=== PATIENT | male | born 1950 | race African-American/Black ===

== ENCOUNTER 2021-07-13 18:01 | Inpatient (IN) ==
[2021-07-13] MEDS ORDERED: SODIUM CHLORIDE 0.9% 500 ML IV STA (18:55)
[2021-07-13] MEDS ORDERED: ONDANSETRON 4 MG/2 ML VIAL IV STA (18:55)
[2021-07-13] MEDS ORDERED: methylPREDNISolone SOD SUC 125 MG/2 ML VIAL IV STA (18:55)
[2021-07-13] MEDS ORDERED: ALBUTEROL NEB SOLN 5 MG/ML 20 ML/BOTTLE CONT NEB SCH (19:00)
[2021-07-13 19:45] LABS: Basophils # 0.1 10*3/uL (0.0-0.2); Basophils % 0.7 % (0.0-0.8); Eosinophils # 0.5 10*3/uL (0.0-0.87); Eosinophils % 4.9 % (0.00-10.9); Hematocrit 41.6 VOL% (42.0-52.0); Hemoglobin 13.5 GM/DL (14.0-18.0); Immature Granulocytes % 0.4 %; Immature Granulocytes Absolute 0.04 #; Lymphocytes # 2.7 10*3/uL (1.4-4.0); Lymphocytes % 25.8 % (21.2-54.2); Mean Corpuscular HGB Conc 32.5 GM/DL (32-36); Mean Corpuscular Volume 81.4 FL (87-102); Monocytes # 0.9 10*3/uL (0.11-0.8); Neutrophils % 60.2 % (38.7-73.9); Platelet Count 520 T/CUMM (130-400); Red Blood Count 5.11 MC/CUMM (3.8-5.5); Red Cell Distribution Width 15.4 % (9.3-17.3); White Blood Count 10.6 T/CUMM (4-12)
[2021-07-13 19:52] LABS: Albumin 3.2 G/DL (3.4-5.0); Bilirubin,Total 0.5 MG/DL (0.20-1.00); Calcium 9.8 MG/DL (8.5-10.1); Osmolality,Calculated 267.1 MOS/KG (273-304); Potassium 3.7 MMOL/L (3.5-5.1); Total Protein 7.7 G/DL (6.4-8.2)
[2021-07-13] MEDS ORDERED: ENOXAPARIN 100 MG/ML SYRINGE SUBCUT STA (20:11)
[2021-07-13] MEDS ORDERED: ASPIRIN EC 325 MG TABLET PO STA (20:11)
[2021-07-13] MEDS ORDERED: PIPERACILLIN/TAZOBACTAM 3,375 MG in SODIUM CHLORIDE 0.9% 100 ML IV STA (20:11)
[2021-07-13] MEDS ORDERED: NICOTINE 21 MG/24 HR PATCH TRANSDERM PRN (20:29)
[2021-07-13] MEDS ORDERED: ACETAMINOPHEN 325 MG TABLET PO PRN (20:29)
[2021-07-13] MEDS ORDERED: MORPHINE 2 MG/1 ML SYRINGE IV PRN (20:29)
[2021-07-13] MEDS ORDERED: ZALEPLON 5 MG CAPSULE PO PRN (20:29)
[2021-07-13] MEDS ORDERED: ONDANSETRON 4 MG/2 ML VIAL IV PRN (20:29)
[2021-07-13] MEDS ORDERED: diphenhydrAMINE CAP 25 MG CAPSULE PO PRN (20:29)
[2021-07-13] MEDS ORDERED: GLUCAGON 1 MG VIAL IM PRN (20:29)
[2021-07-13] MEDS ORDERED: guaiFENesin/DM ER 600-30 MG TABLET PO PRN (20:29)
[2021-07-13] MEDS ORDERED: DEXTROSE 10% 250 ML BAG IV PRN (20:33)
[2021-07-13] MEDS: HEPARIN 5,000 UNIT/1 ML VIAL SUBCUT SCH (21:26)
[2021-07-13] MEDS: hydrALAZINE 20 MG/1 ML VIAL IV PRN (21:31)
[2021-07-14 01:37] LABS: Basophils % 0.4 % (0.0-0.8); Eosinophils % 0.1 % (0.00-10.9); Hematocrit 40.7 VOL% (42.0-52.0); Hemoglobin 13.5 GM/DL (14.0-18.0); Immature Granulocytes % 0.3 %; Immature Granulocytes Absolute 0.02 #; Lymphocytes # 0.9 10*3/uL (1.4-4.0); Lymphocytes % 11.5 % (21.2-54.2); Mean Corpuscular HGB Conc 33.2 GM/DL (32-36); Mean Corpuscular Volume 80.3 FL (87-102); Mean Platelet Volume 9.4 FL (9.6-12.0); Monocytes % 0.5 % (1.7-12.7); Neutrophils % 87.2 % (38.7-73.9); Platelet Count 478 T/CUMM (130-400); Red Blood Count 5.07 MC/CUMM (3.8-5.5); Red Cell Distribution Width 15.4 % (9.3-17.3); White Blood Count 7.9 T/CUMM (4-12)
[2021-07-14] MEDS: ALBUTEROL/IPRATROPIUM 3 ML NEB RESP TX SCH ×4 (01:43→19:44)
[2021-07-14 02:14] LABS: Calcium 9.4 MG/DL (8.5-10.1); Osmolality,Calculated 274.8 MOS/KG (273-304); Potassium 3.7 MMOL/L (3.5-5.1)
[2021-07-14] MEDS: methylPREDNISolone SOD SUC 125 MG/2 ML VIAL IV SCH ×2 (10:57→22:20)
[2021-07-14] MEDS: HEPARIN 5,000 UNIT/1 ML VIAL SUBCUT SCH ×2 (10:58→20:44)
[2021-07-14] MEDS: LEVOFLOXACIN INJ 750 MG/150 ML PREMIX IV SCH (10:59)
[2021-07-14] MEDS: PANTOPRAZOLE 40 MG TABLET PO SCH (17:46)
[2021-07-15] MEDS: ALBUTEROL/IPRATROPIUM 3 ML NEB RESP TX SCH ×4 (00:05→19:16)
[2021-07-15 05:11] LABS: Basophils % 0.1 % (0.0-0.8); Hematocrit 38.9 VOL% (42.0-52.0); Hemoglobin 12.5 GM/DL (14.0-18.0); Immature Granulocytes % 0.7 %; Immature Granulocytes Absolute 0.09 #; Lymphocytes # 1.5 10*3/uL (1.4-4.0); Lymphocytes % 10.9 % (21.2-54.2); Mean Corpuscular HGB Conc 32.1 GM/DL (32-36); Mean Corpuscular Volume 81.7 FL (87-102); Mean Platelet Volume 9.9 FL (9.6-12.0); Monocytes # 0.3 10*3/uL (0.11-0.8); Monocytes % 2.1 % (1.7-12.7); Neutrophils % 86.2 % (38.7-73.9); Platelet Count 596 T/CUMM (130-400); Red Blood Count 4.76 MC/CUMM (3.8-5.5); White Blood Count 13.7 T/CUMM (4-12)
[2021-07-15 05:28] LABS: Calcium 9.3 MG/DL (8.5-10.1); Osmolality,Calculated 281.5 MOS/KG (273-304); Potassium 3.9 MMOL/L (3.5-5.1)
[2021-07-15] MEDS: methylPREDNISolone SOD SUC 125 MG/2 ML VIAL IV SCH ×2 (10:44→21:49)
[2021-07-15] MEDS: PANTOPRAZOLE 40 MG TABLET PO SCH (10:45)
[2021-07-15] MEDS: HEPARIN 5,000 UNIT/1 ML VIAL SUBCUT SCH ×2 (10:45→21:47)
[2021-07-15] MEDS: LEVOFLOXACIN INJ 750 MG/150 ML PREMIX IV SCH (10:46)
[2021-07-16] MEDS: ALBUTEROL/IPRATROPIUM 3 ML NEB RESP TX SCH ×4 (00:16→19:28)
[2021-07-16] MEDS ORDERED: MIDAZOLAM 2 MG/2 ML VIAL ONE (06:35)
[2021-07-16] MEDS ORDERED: PROMETHAZINE 25 MG/1 ML VIAL IM ONE (07:00)
[2021-07-16] MEDS ORDERED: MEPERIDINE 50 MG/1 ML VIAL IM ONE (07:00)
[2021-07-16] MEDS ORDERED: GLYCOPYRROLATE 0.4 MG/2 ML VIAL IM ONE (07:00)
[2021-07-16] MEDS ORDERED: LIDOCAINE 2% 20 ML VIAL RESP TX ONE (07:30)
[2021-07-16] MEDS ORDERED: LIDOCAINE 2% VISCOUS 100 ML BOTTLE SWISH/SPIT ONE (07:30)
[2021-07-16] MEDS ORDERED: MIDAZOLAM 10 MG/2 ML VIAL IV ONE (07:30)
[2021-07-16] MEDS ORDERED: LIDOCAINE 1% 20 ML VIAL MISC INJ ONE (07:30)
[2021-07-16] MEDS ORDERED: DEXTROSE 50% 25 GM/50 ML VIAL IV PRN (08:40)
[2021-07-16] MEDS: LEVOFLOXACIN INJ 750 MG/150 ML PREMIX IV SCH (10:32)
[2021-07-16] MEDS: PANTOPRAZOLE 40 MG TABLET PO SCH (10:32)
[2021-07-16] MEDS: methylPREDNISolone SOD SUC 125 MG/2 ML VIAL IV SCH ×2 (10:35→21:31)
[2021-07-16] MEDS: HEPARIN 5,000 UNIT/1 ML VIAL SUBCUT SCH ×2 (10:37→21:31)
[2021-07-16] MEDS: hydrALAZINE 20 MG/1 ML VIAL IV PRN (12:54)
[2021-07-17] MEDS: ALBUTEROL/IPRATROPIUM 3 ML NEB RESP TX SCH ×2 (00:20→07:33)
[2021-07-17 05:36] LABS: Hematocrit 38.6 VOL% (42.0-52.0); Hemoglobin 12.3 GM/DL (14.0-18.0); Immature Granulocytes % 0.8 %; Immature Granulocytes Absolute 0.09 #; Lymphocytes % 8.6 % (21.2-54.2); Mean Corpuscular HGB Conc 31.9 GM/DL (32-36); Mean Corpuscular Volume 82.8 FL (87-102); Mean Platelet Volume 10.7 FL (9.6-12.0); Monocytes # 0.3 10*3/uL (0.11-0.8); Monocytes % 2.1 % (1.7-12.7); Neutrophils % 88.5 % (38.7-73.9); Platelet Count 487 T/CUMM (130-400); Red Blood Count 4.66 MC/CUMM (3.8-5.5); Red Cell Distribution Width 16.3 % (9.3-17.3); White Blood Count 11.7 T/CUMM (4-12)
[2021-07-17 06:00] LABS: Calcium 9.2 MG/DL (8.5-10.1); Osmolality,Calculated 280.7 MOS/KG (273-304); Potassium 4.3 MMOL/L (3.5-5.1)
[2021-07-17] MEDS: LEVOFLOXACIN INJ 750 MG/150 ML PREMIX IV SCH (10:38)
[2021-07-17] MEDS: PANTOPRAZOLE 40 MG TABLET PO SCH (10:38)
[2021-07-17] MEDS: methylPREDNISolone SOD SUC 125 MG/2 ML VIAL IV SCH (10:40)
[2021-07-17] MEDS: HEPARIN 5,000 UNIT/1 ML VIAL SUBCUT SCH (10:42)
[2021-07-17 12:00] VITALS: BP 155/62
== END 2021-07-17 13:36 | disposition home or self-care (01) | DRG 180 ==
LOC: N.ED 18:01 → SUATTDRO 20:29 → N.EDINP 20:29 → N.TELES 21:03
PROVIDERS: ADMIT Internal Medicine; ATTEND Internal Medicine
PROC: BRONCHB (2021-07-16 07:35)